=== PATIENT | male | born 1965 | race African-American/Black ===

== ENCOUNTER → 2016-06-02 | Outpatient (CLI) | payer BC ==
[~2016-06-02] MED LIST: REGADENOSON 0.4 MG/5 ML DISP.SYRIN. IV ONE
== END | disposition home or self-care (01) ==
LOC: PCVCIMAG 07:38
PROVIDERS: ATTEND Internal Medicine Cardiovascular Disease
DX: I44.7 Left bundle-branch block, unspecified (principal); R06.00 Dyspnea, unspecified; E78.5 Hyperlipidemia, unspecified; I42.9 Cardiomyopathy, unspecified
CPT/HCPCS: 36415; 78452; 93017; 93306; A9500; J2785

== ENCOUNTER → 2016-11-17 | Outpatient (CLI) | payer BC ==
--- NOTE | 2016-11-17 10:33 | PCVCIMAG ---
APPROVED REPORT Study performed: 11/17/2016 09:21:57 EXAM: Comprehensive 2D, Doppler, and color-flow Echocardiogram Patient Location: Echo lab Status: routine BSA: 1.94 HR: 75 bpmBP: 100/70 mmHg Rhythm: LBBB Other Information Study Quality: Good Indications Cardiomyopathy, LBBB 2D Dimensions IVSd: 7.06 (7-11mm)LVOT Diam: 20.09 (18-24mm) LVDd: 61.94 mm PWd: 6.55 (7-11mm)Ascending Ao: 30.04 (22-36mm) LVDs: 55.86 (25-40mm) Left Atrium: 32.76 (27-40mm) Aortic Root: 29.48 mm LV Single Plane 4CH: 40.45 % LV Single Plane 2CH: 36.43 %Gutierrez's LVEF: 38.44 % Biplane EF: 40.0 % Volumes Left Atrial Volume (Systole) Single Plane 4CH: 77.88 mLSingle Plane 2CH: 72.58 mL LA ESV Index: 40.00 mL/m2 Aortic Valve AoV Peak Edmund.: 1.15 m/s AO Peak Gr.: 5.27 mmHgLVOT Max P.53 mmHg LVOT Max V: 0.94 m/s LÁZARO Vmax: 2.59 cm2 Mitral Valve E/A Ratio: 1.5 MV Decel. Time: 142.21 ms MV E Max Edmund.: 1.02 m/s MV A Edmund.: 0.68 m/s IVRT: 128.03 ms Pulmonary Valve PV Peak Gr.: 1.62 mmHg Left Ventricle Left ventricle is moderately dilated. There is normal LV segmental wall motion. There is normal left ventricular wall thickness. Left ventricular ejection fraction is moderate to severely decreased. LVEF is 30-35%. This study is not technically sufficient to allow evaluation of the LV diastolic function. Right Ventricle The right ventricle is normal size. The right ventricular systolic function is normal. Atria Left atrium is mildly dilated. The right atrium size is normal. Aortic Valve The aortic valve is normal in structure. No aortic regurgitation is present. There is no aortic valvular stenosis. Mitral Valve The mitral valve is normal in structure. Trace mitral regurgitation. No evidence of mitral valve stenosis. Tricuspid Valve The tricuspid valve is normal in structure. There is no tricuspid valve regurgitation noted. Pulmonic Valve The pulmonary valve is normal in structure. There is no pulmonic valvular regurgitation. Great Vessels The aortic root is normal in size. IVC is normal in size and collapses with >50% inspiration Pericardium There is no pericardial effusion. <Conclusion> Left ventricle is moderately dilated. Left ventricular ejection fraction is moderate to severely decreased. LVEF is 30-35%. The right ventricle is normal size. Left atrium is mildly dilated. The aortic valve is normal in structure. Trace mitral regurgitation. There is no pericardial effusion.
== END | disposition home or self-care (01) ==
LOC: PCVCIMAG 09:11
PROVIDERS: ATTEND Internal Medicine Cardiovascular Disease
DX: I34.0 Nonrheumatic mitral (valve) insufficiency (principal); I42.9 Cardiomyopathy, unspecified; E78.00 Pure hypercholesterolemia, unspecified; I44.7 Left bundle-branch block, unspecified; Z79.82 Long term (current) use of aspirin
CPT/HCPCS: 93306; G0463